=== PATIENT | female | born 1950 | race African-American/Black ===

== ENCOUNTER 2017-03-05 07:38 | Outpatient (CLI) | payer MEDICARE, OTHER ==
--- NOTE | 2017-03-05 10:28 | XRay Report ---
LEFT CLAVICLE: Pain. The bony architecture is intact without evidence of fracture or dislocation. No significant soft tissue abnormality is seen. IMPRESSION: Normal left clavicle.
== END 2017-03-05 07:39 | disposition home or self-care (01) ==
LOC: SPVIMAG 07:38
PROVIDERS: ATTEND Orthopaedic Surgery
DX: M25.512 Pain in left shoulder (principal)